=== PATIENT | female | born 1955 | race Caucasian/White ===

== ENCOUNTER → 2020-02-09 09:42 | Outpatient (BNVA) | payer MEDICARE, OTHER, SELFPAY | PROVIDERS: PCP Nurse Practitioner Family; Visit Provider Nurse Practitioner Family | DX: I10 Essential (primary) hypertension (principal); G47.33 Obstructive sleep apnea (adult) (pediatric); F41.9 Anxiety disorder, unspecified; J45.20 Mild intermittent asthma, uncomplicated; E78.5 Hyperlipidemia, unspecified; E03.9 Hypothyroidism, unspecified; Z12.11 Encounter for screening for malignant neoplasm of colon; Z12.31 Encounter for screening mammogram for malignant neoplasm of breast; J30.89 Other allergic rhinitis; D56.5 Hemoglobin E-beta thalassemia; F17.211 Nicotine dependence, cigarettes, in remission | CPT/HCPCS: 80053; 80061; 83036; 84443; 85025 ==

== ENCOUNTER → 2020-04-17 16:46 | Outpatient (BNVA) | payer MEDICARE, OTHER, SELFPAY | PROVIDERS: PCP Nurse Practitioner Family; Visit Provider Nurse Practitioner Family | DX: E03.9 Hypothyroidism, unspecified (principal); E11.9 Type 2 diabetes mellitus without complications | CPT/HCPCS: 80053; 80061; 83036; 84443; 85025 ==

== ENCOUNTER → 2021-01-03 10:48 | Outpatient (BNVA) | payer MEDICARE, OTHER, SELFPAY | PROVIDERS: PCP Nurse Practitioner Family; Visit Provider Nurse Practitioner Family | DX: E87.6 Hypokalemia (principal); E11.9 Type 2 diabetes mellitus without complications; E03.9 Hypothyroidism, unspecified; E78.5 Hyperlipidemia, unspecified; E55.9 Vitamin D deficiency, unspecified; F41.9 Anxiety disorder, unspecified; G47.33 Obstructive sleep apnea (adult) (pediatric); I10 Essential (primary) hypertension; R53.83 Other fatigue; R59.9 Enlarged lymph nodes, unspecified | CPT/HCPCS: 80053; 80061; 82306; 82607; 83036; 84439; 84443; 84481; 85025 ==

== ENCOUNTER 2021-01-15 20:00 | Outpatient (CLI) | payer MEDICARE, OTHER, SELFPAY | END 2021-01-15 20:01 | disposition home or self-care (01) | LOC: SLEEP 01-16 08:59 | PROVIDERS: PCP Nurse Practitioner Family; Visit Provider Nurse Practitioner Family | DX: G47.33 Obstructive sleep apnea (adult) (pediatric) (principal) | CPT/HCPCS: 95810 ==

== ENCOUNTER 2021-01-25 20:00 | Outpatient (CLI) | payer MEDICARE, OTHER, SELFPAY | END 2021-01-25 20:01 | disposition home or self-care (01) | LOC: SLEEP 12-19 08:32 | PROVIDERS: PCP Nurse Practitioner Family; Visit Provider Nurse Practitioner Family | DX: L30.9 Dermatitis, unspecified (principal); E53.8 Deficiency of other specified B group vitamins | CPT/HCPCS: 82607 ==

== ENCOUNTER → 2021-08-08 15:11 | Outpatient (BNVA) | payer MEDICARE, OTHER, SELFPAY | PROVIDERS: PCP Nurse Practitioner Family; Visit Provider Nurse Practitioner Family | DX: E53.8 Deficiency of other specified B group vitamins (principal); R53.83 Other fatigue; E78.5 Hyperlipidemia, unspecified; E11.9 Type 2 diabetes mellitus without complications; F41.9 Anxiety disorder, unspecified; E03.9 Hypothyroidism, unspecified; I10 Essential (primary) hypertension; J32.0 Chronic maxillary sinusitis; Z68.39 Body mass index [BMI] 39.0-39.9, adult | CPT/HCPCS: 80053; 80061; 82306; 82607; 82746; 83036; 84443 ==

== ENCOUNTER → 2022-02-21 08:27 | Outpatient (BNVA) | payer MEDICARE, OTHER, SELFPAY | PROVIDERS: PCP Nurse Practitioner Family; Visit Provider Nurse Practitioner Family | DX: E11.9 Type 2 diabetes mellitus without complications (principal); E87.6 Hypokalemia; E78.5 Hyperlipidemia, unspecified; F41.9 Anxiety disorder, unspecified; E03.9 Hypothyroidism, unspecified; I10 Essential (primary) hypertension; E55.9 Vitamin D deficiency, unspecified; R05.9 Cough, unspecified; J32.0 Chronic maxillary sinusitis; J45.20 Mild intermittent asthma, uncomplicated; R53.83 Other fatigue | CPT/HCPCS: 80053; 80061; 82306; 83036; 84443; 85025 ==

== ENCOUNTER → 2022-02-28 16:17 | Outpatient (BNVA) | payer MEDICARE, OTHER, SELFPAY | PROVIDERS: PCP Nurse Practitioner Family; Visit Provider Nurse Practitioner Family | DX: R05.9 Cough, unspecified (principal); J45.20 Mild intermittent asthma, uncomplicated; E53.8 Deficiency of other specified B group vitamins | CPT/HCPCS: 71046; 82607 ==

== ENCOUNTER → 2022-03-14 10:54 | Outpatient (BNVA) | payer MEDICARE, OTHER, SELFPAY | PROVIDERS: PCP Nurse Practitioner Family; Visit Provider Family Medicine | DX: R05.9 Cough, unspecified (principal); R06.02 Shortness of breath; U07.1 COVID-19 | CPT/HCPCS: 85379 ==

== ENCOUNTER 2022-03-15 20:53 | Emergency (ER) | payer MEDICARE, OTHER, SELFPAY ==
[2022-03-15 20:58] VITALS: BP 156/75; PULSE 97; RESP 16; TEMP 36.8; O2SAT 97; BMI 39.6
--- NOTE | 2022-03-15 21:38 | XRR_ITS ---
PROCEDURE INFORMATION: Exam: XR Chest Exam date and time: 03/15/2022 9:44 PM Age: 67 years old Clinical indication: Cough TECHNIQUE: Imaging protocol: Radiologic exam of the chest. Views: 1 view. COMPARISON: CR XR chest 2V* [id number] 02/28/2022 4:25 PM FINDINGS: Lungs: There are some increased ground-glass opacities in the lower hemithoraces, findings that could represent mild pulmonary edema although a bilateral basilar pneumonitis cannot be excluded. Pleural spaces: Unremarkable. No pleural effusion. No pneumothorax. Heart/Mediastinum: Unremarkable. No cardiomegaly. Bones/joints: Unremarkable. XR/XR chest 1V portable [id number] IMPRESSION: Increased ground-glass opacities in the lower hemithoraces may represent pulmonary edema although a bilateral basilar pneumonitis cannot be excluded.
--- NOTE | 2022-03-15 21:39 | ECG_ITS ---
[facility] Test Date: 2022-03-15 Pat Name: Birgit Akhtar Department: Room: Gender: Female Patient Relations Director: : 1955 Requested By: James Adhikari Order Number: [id number] Sadaf MD: Teodoro Steven M.D. Measurements Intervals [place] Rate: 64 P: 81 IA: 152 QRS: 79 QRSD: 94 T: 83 QT: 402 QTc: 417 Interpretive Statements SINUS RHYTHM LOW QRS VOLTAGE IN PRECORDIAL LEADS [QRS DEFLECTION < 1.0 mV IN CHEST LEADS] Compared to ECG 01/28/2017 18:28:52 Low QRS voltage now present Sinus bradycardia no longer present Electronically Signed On 03-16-2022 20:32:47 CDT by Teodoro Steven M.D. [email or web address]
--- NOTE | 2022-03-15 21:47 | W.ED.CHESTPA ---
Documented by User: James Adhikari MD 03/15/22 22:58 HPI - Chest Pain General: Chief Complaint: Chest Pain Stated Complaint: chest tightness Time Seen by Provider: 03/15/22 20:56 History of Present Illness: Patient comes in with a persistent cough and chest pressure. States she was diagnosed with COVID 6 weeks ago for the second time, and that the cough and chest pressure has persisted. Has been seen by her primary care doctor a couple of times and placed on steroids which have helped, however when she is finished the steroids 2 days ago the cough returned. Denies fever, vomiting, diarrhea. Patient does have a history of hypertension. Associated symptoms: Reports dyspnea; Deny abdominal pain, fever(s), nausea, palpitations or vomiting Review of Systems Const: Denies: fever(s) or body aches Eyes: Denies: change in vision or blurry vision ENMT: Denies: throat pain or odynophagia Card: Reports: chest pain; Denies: palpitations Resp: Reports: dyspnea; Denies: productive cough GI: Denies: abdominal pain, nausea or vomiting : Denies: flank pain or dysuria Musc: Denies: neck pain or back pain Skin/Breast: Denies: rash or pruritus Neuro: Denies: headache(s) or numbness in extremities Psych: Denies: anxiety or change in appetite Endo: Denies: polyuria or excessive sweating PFSH ED PFSH: Medical History Anxiety Asthma History of COVID-19 Hyperlipidemia Hypertension Hypothyroid MARC (obstructive sleep apnea) Surgical History History of back surgery Family History Mother Cancer Brain Father CAD (coronary artery disease) Social History Smoking and tobacco status: former smoker Quit status (tobacco): has quit using tobacco Second hand smoke exposure: No Alcohol intake: never Lives independently: Yes Household members: spouse Marital status: service: No Current occupational status: employed Current occupation: [employer] History of recent travel: No Current gender identity: Female Special peewee needs: No Agree to transfusion: Yes Physical Exam Const: COMMON NORMALS: no acute distress, patient oriented x3, healthy appearing and alert HENMT: COMMON NORMALS: normocephalic and atraumatic HEAD & SCALP: normocephalic and atraumatic Eye: COMMON NORMALS: Equal, round and reactive pupils present and EOMs intact bilaterally PUPIL: Yes Equal, round and reactive pupils present Neck/C-Spine: COMMON NORMALS: full ROM and supple Resp: COMMON NORMALS: normal respiratory effort, No retractions and No use of accessory muscles Cardio: COMMON NORMALS: regular rate and regular rhythm RATE: regular rate RHYTHM: regular rhythm GI: COMMON NORMALS: Normal to inspection, nondistended, normoactive bowel sounds present, Soft to palpation and non-tender PALPATION: Yes Soft to palpation Back/Pelvis: COMMON NORMALS: thoracic and lumbar spine normal to inspection and no thoracic nor lumbar tenderness Extremity: COMMON NORMALS: normal to inspection and full ROM Neuro: COMMON NORMALS: patient oriented x3 SENSORIUM/ORIENTATION: Yes alert Psych: COMMON NORMALS: mental status grossly normal and cooperative Skin: COMMON NORMALS: no rashes or lesions noted and no wounds GENERAL SKIN EXAM: no rashes or lesions noted Course Vital Signs: Vital signs: Vital Signs Temperature 98.2 F 03/16/22 00:35 Pulse Rate 70 03/16/22 00:35 Respiratory Rate 18 03/16/22 00:35 Blood Pressure 128/55 03/16/22 00:35 Pulse Oximetry 94 03/16/22 00:35 Oxygen Delivery Me thod 03/15/22 22:16 MDM - Chest Pain Medical Decision Making Patient comes in with a persistent cough and chest pressure. States she was diagnosed with COVID 6 weeks ago for the second time, and that the cough and chest pressure has persisted. Has been seen by her primary care doctor a couple of times and placed on steroids which have helped, however when she is finished the steroids 2 days ago the cough returned. Denies fever, vomiting, diarrhea. Patient does have a history of hypertension. Given the chest tightness we will check an EKG, labs, x-ray, and reassess. On reassessment I talked to the patient about the test results. We are awaiting the second troponin which if similar to the first troponin or less we will discharge home on a steroid taper. Will sign out to the oncoming physician to follow-up on the second troponin. Lab Data : 03/15/22 21:20 03/15/22 21:20 Radiology Impressions Chest X-Ray 03/15/22 21:38 IMPRESSION: Increased ground-glass opacities in the lower hemithoraces may represent pulmonary edema although a bilateral basilar pneumonitis cannot be excluded. Laboratory Results WBC 8.3 10^3/uL (4.0-10.0) 03/15/22 21:20 RBC 4.22 10^6/uL (4.1-5.3) 03/15/22 21:20 Hgb 12.5 g/dL (11.5-15.3) 03/15/22 21:20 Hct 38.8 % (37.0-47.0) 03/15/22 21:20 MCV 91.9 fl (81-99) 03/15/22 21:20 MCH 29.6 pg (28.0-34.0) 03/15/22 21:20 MCHC 32.2 g/dL (30.0-36.0) 03/15/22 21:20 RDW 13.7 % (12.1-15.1) 03/15/22 21:20 Plt Count 295 10^3/cmm (130-400) 03/15/22 21:20 MPV 10.3 fL (7.4-10.4) 03/15/22 21:20 Neut % (Auto) 55.7 % 03/15/22 21:20 Lymph % (Auto) 32.6 % 03/15/22 21:20 Banks % (Auto) 8.3 % 03/15/22 21:20 Eos % (Auto) 2.6 % 03/15/22 21:20 Baso % (Auto) 0.4 % 03/15/22 21:20 Neut # (Auto) 4.63 10^3/uL (1.8-7.7) 03/15/22 21:20 Lymph # (Auto) 2.7 10^3/uL (0.8-4.8) 03/15/22 21:20 Banks # (Auto) 0.7 10^3/uL (0.2-0.9) 03/15/22 21:20 Eos # (Auto) 0.2 10^3/uL (0.0-0.8) 03/15/22 21:20 Baso # (Auto) 0.0 10^3/uL (0.0-0.1) 03/15/22 21:20 Nucleated RBC % (auto) 0 % 03/15/22 21:20 Nucleated RBCs # 0.0 /100WBC 03/15/22 21:20 Sodium 140 mmol/L (136-145) 03/15/22 21:20 Potassium 3.6 mmol/L (3.5-5.1) 03/15/22 21:20 Chloride 100 mmol/L (98-107) 03/15/22 21:20 Carbon Dioxide 29 mmol/L (22-29) 03/15/22 21:20 Anion Gap 14.6 (5-19) 03/15/22 21:20 BUN 18 mg/dL (8-23) 03/15/22 21:20 Creatinine 0.7 mg/dL (0.5-0.9) 03/15/22 21:20 GFR Calculation 83.2 mL/min (90-130) L 03/15/22 21:20 Glucose 132 mg/dL (65-115) H 03/15/22 21:20 Calculated Osmolality 294 mOsm/kg (285-295) 03/15/22 21:20 Calcium 9.4 mg/dL (8.5-10.5) 03/15/22 21:20 Total Bilirubin 0.4 mg/dL (0.15-1.2) 03/15/22 21:20 AST 20 U/L (0-32) 03/15/22 21:20 ALT 35 U/L (0-33) H 03/15/22 21:20 Alkaline Phosphatase 64 IU/L (35-105) 03/15/22 21:20 Troponin T Baseline 16 ng/L (0-10) H 03/15/22 21:20 Troponin T 120 Minute 15.85 ng/L (0-10) H 03/15/22 23:20 Delta Troponin T -0.15 ABS# (0-10) L 03/15/22 23:20 Total Protein 6.3 g/dL (6.6-8.7) L 03/15/22 21:20 Albumin 3.8 g/dL (3.5-5.2) 03/15/22 21:20 Globulin 2.5 g/dL (1.3-4.6) 03/15/22 21:20 Discharge Plan Discharge Patient Disposition: Home Clinical Impression: Pneumonitis Condition: Stable Prescriptions: No Action aspirin [Adult Aspirin Regimen] 81 mg tablet,delayed release (DR/EC) 81 mg PO DAILY loratadine [Claritin] 10 mg tablet 10 mg PO DAILY fluticasone propionate [Flonase Allergy Relief] 50 mcg/actuation spray,suspension 2 spray intranasal DAILY Rx Instructions: administer into each nostril alprazolam [Xanax] 0.25 mg tablet 0.25 mg PO TID PRN (Reason: anxiety) Qty: 90 0RF budesonide-formoterol [Symbicort] 160-4.5 mcg/actuation HFA aerosol inhaler 2 puff inhalation BID Qty: 10.2 2RF promethazine-DM 6.25-15 mg/5 mL syrup 5 - 10 ml PO Q6H PRN (Reason: cough) Qty: 200 0RF albuterol sulfate [ProAir HFA] 90 mcg/actuation HFA aerosol inhaler 2 puff INHALATION Q6H PRN (Reason: shortness of breath or wheezing) Qty: 18 2RF ipratropium-albuterol 0.5 mg-3 mg(2.5 mg base)/3 mL solution for nebulization 3 ml inhalation QID PRN (Reason: wheezing) Qty: 90 2RF Trelegy Ellipta 100-62.5-25 mcg blister with device 1 inh inhalation DAILY Qty: 60 2RF fluticasone propion-salmeterol [Advair Diskus] 500-50 mcg/dose blister with device 1 inh inhalation BID Qty: 60 2RF hydroxyzine HCl 25 mg tablet 25 mg PO TID PRN (Reason: itching) Qty: 30 0RF (DME) CPAP MACHINE AND SUPPLIES See Rx Instructions .Route .MEDSUPPLY Qty: 1 0RF Rx Instructions: AUTO CPAP 4-20CM potassium chloride 20 mEq tablet extended release See Rx Instructions .ROUTE .COMPLEX Qty: 180 0RF Dose Instruction: TAKE ONE TABLET BY MOUTH TWICE DAILY Rx Instructions: TAKE ONE TABLET BY MOUTH TWICE DAILY hydrochlorothiazide 25 mg tablet See Rx Instructions .ROUTE .COMPLEX Qty: 90 0RF Dose Instruction: TAKE ONE TABLET BY MOUTH DAILY Rx Instructions: TAKE ONE TABLET BY MOUTH DAILY citalopram 20 mg tablet See Rx Instructions .ROUTE .COMPLEX Qty: 90 0RF Dose Instruction: TAKE ONE TABLET BY MOUTH EVERY DAY Rx Instructions: TAKE ONE TABLET BY MOUTH EVERY DAY lisinopril 20 mg tablet See Rx Instructions .ROUTE .COMPLEX Qty: 90 0RF Dose Instruction: TAKE ONE TABLET BY MOUTH EVERY DAY Rx Instructions: TAKE ONE TABLET BY MOUTH EVERY DAY spironolactone 25 mg tablet See Rx Instructions .ROUTE .COMPLEX Qty: 90 0RF Dose Instruction: TAKE ONE TABLET BY MOUTH DAILY Rx Instructions: TAKE ONE TABLET BY MOUTH DAILY levothyroxine 100 mcg tablet See Rx Instructions .ROUTE .COMPLEX Qty: 90 0RF Dose Instruction: TAKE ONE TABLET BY MOUTH EVERY DAY Rx Instructions: TAKE ONE TABLET BY MOUTH EVERY DAY cyanocobalamin (vitamin B-12) 1,000 mcg/mL solution See Rx Instructions .ROUTE .COMPLEX Qty: 1 11RF Dose Instruction: inject 1000mcg(1ml) INTRAMUSCULARLY monthly Rx Instructions: inject 1000mcg(1ml) INTRAMUSCULARLY monthly (DME) nebulizer and compressor Device See Rx Instructions .Route Qty: 1 0RF Rx Instructions: qid prn sob (DME) nebulizer accessories Kit See Rx Instructions .Route Qty: 1 0RF Rx Instructions: As directed (DME) nebulizers Misc See Rx Instructions .Route Qty: 1 0RF Rx Instructions: use 4 times daily as needed for shortness of breath (DME) nebulizer accessories Kit See Rx Instructions .Route Qty: 1 0RF Rx Instructions: 4 times daily as needed for shortness of breath Discharge Orders: Discharge ED (Routine); Ordered 03/15/22 Ordered By: James Adhikari Referrals: Penny Blas FNP [Primary Care Provider] - Sign Out Sign Out Data: Patient Sign Out occurred on 03/15/22 at 23:00. Patient's care was discussed, and care was transferred from to Jesús Solomon MD. Coding Level of Care Code ED Rehabilitation Clerk for Chg Fwd Exam Comprehensive Documented by User: Jesús Solomon MD 03/30/22 16:03 HPI - Chest Pain General: Chief Complaint: Chest Pain Stated Complaint: chest tightness Time Seen by Provider: 03/15/22 20:56 PFSH ED PFSH: Medical History Anxiety Asthma History of COVID-19 Hyperlipidemia Hypertension Hypothyroid MARC (obstructive sleep apnea) Surgical History History of back surgery Family History Mother Cancer Brain Father CAD (coronary artery disease) Social History Smoking and tobacco status: former smoker Quit status (tobacco): has quit using tobacco Second hand smoke exposure: No Alcohol intake: never Lives independently: Yes Household members: spouse Marital status: service: No Current occupational status: employed Current occupation: [employer] History of recent travel: No Current gender identity: Female Special peewee needs: No Agree to transfusion: Yes Course Vital Signs: Vital signs: Vital Signs Temperature 98.2 F 03/16/22 00:35 Pulse Rate 70 03/16/22 00:35 Respiratory Rate 18 03/16/22 00:35 Blood Pressure 128/55 03/16/22 00:35 Pulse Oximetry 94 03/16/22 00:35 Oxygen Delivery Me thod 03/15/22 22:16 MDM - Chest Pain Medical Decision Making Patient comes in with a persistent cough and chest pressure. States she was diagnosed with COVID 6 weeks ago for the second time, and that the cough and chest pressure has persisted. Has been seen by her primary care doctor a couple of times and placed on steroids which have helped, however when she is finished the steroids 2 days ago the cough returned. Denies fever, vomiting, diarrhea. Patient does have a history of hypertension. Given the chest tightness we will check an EKG, labs, x-ray, and reassess. On reassessment I talked to the patient about the test results. We are awaiting the second troponin which if similar to the first troponin or less we will discharge home on a steroid taper. Will sign out to the oncoming physician to follow-up on the second troponin. Patient care handoff received from Dr. Adhikari pending completion of ED evaluation specifically repeat troponin. Laboratory studies reviewed and. Troponin at 2 hours is similar. Satisfactory for continue plan as outlined by Dr. Adhikari. Jesús Solomon MD Emergency Medicine Lab Data : 03/15/22 21:20 03/15/22 21:20 Radiology Impressions Chest X-Ray 03/15/22 21:38 IMPRESSION: Increased ground-glass opacities in the lower hemithoraces may represent pulmonary edema although a bilateral basilar pneumonitis cannot be excluded. Laboratory Results WBC 8.3 10^3/uL (4.0-10.0) 03/15/22 21:20 RBC 4.22 10^6/uL (4.1-5.3) 03/15/22 21:20 Hgb 12.5 g/dL (11.5-15.3) 03/15/22 21:20 Hct 38.8 % (37.0-47.0) 03/15/22 21:20 MCV 91.9 fl (81-99) 03/15/22 21:20 MCH 29.6 pg (28.0-34.0) 03/15/22 21:20 MCHC 32.2 g/dL (30.0-36.0) 03/15/22 21:20 RDW 13.7 % (12.1-15.1) 03/15/22 21:20 Plt Count 295 10^3/cmm (130-400) 03/15/22 21:20 MPV 10.3 fL (7.4-10.4) 03/15/22 21:20 Neut % (Auto) 55.7 % 03/15/22 21:20 Lymph % (Auto) 32.6 % 03/15/22 21:20 Banks % (Auto) 8.3 % 03/15/22 21:20 Eos % (Auto) 2.6 % 03/15/22 21:20 Baso % (Auto) 0.4 % 03/15/22 21:20 Neut # (Auto) 4.63 10^3/uL (1.8-7.7) 03/15/22 21:20 Lymph # (Auto) 2.7 10^3/uL (0.8-4.8) 03/15/22 21:20 Banks # (Auto) 0.7 10^3/uL (0.2-0.9) 03/15/22 21:20 Eos # (Auto) 0.2 10^3/uL (0.0-0.8) 03/15/22 21:20 Baso # (Auto) 0.0 10^3/uL (0.0-0.1) 03/15/22 21:20 Nucleated RBC % (auto) 0 % 03/15/22 21:20 Nucleated RBCs # 0.0 /100WBC 03/15/22 21:20 Sodium 140 mmol/L (136-145) 03/15/22 21:20 Potassium 3.6 mmol/L (3.5-5.1) 03/15/22 21:20 Chloride 100 mmol/L (98-107) 03/15/22 21:20 Carbon Dioxide 29 mmol/L (22-29) 03/15/22 21:20 Anion Gap 14.6 (5-19) 03/15/22 21:20 BUN 18 mg/dL (8-23) 03/15/22 21:20 Creatinine 0.7 mg/dL (0.5-0.9) 03/15/22 21:20 GFR Calculation 83.2 mL/min (90-130) L 03/15/22 21:20 Glucose 132 mg/dL (65-115) H 03/15/22 21:20 Calculated Osmolality 294 mOsm/kg (285-295) 03/15/22 21:20 Calcium 9.4 mg/dL (8.5-10.5) 03/15/22 21:20 Total Bilirubin 0.4 mg/dL (0.15-1.2) 03/15/22 21:20 AST 20 U/L (0-32) 03/15/22 21:20 ALT 35 U/L (0-33) H 03/15/22 21:20 Alkaline Phosphatase 64 IU/L (35-105) 03/15/22 21:20 Troponin T Baseline 16 ng/L (0-10) H 03/15/22 21:20 Troponin T 120 Minute 15.85 ng/L (0-10) H 03/15/22 23:20 Delta Troponin T -0.15 ABS# (0-10) L 03/15/22 23:20 Total Protein 6.3 g/dL (6.6-8.7) L 03/15/22 21:20 Albumin 3.8 g/dL (3.5-5.2) 03/15/22 21:20 Globulin 2.5 g/dL (1.3-4.6) 03/15/22 21:20 Discharge Plan Discharge Patient Disposition: Home Clinical Impression: Pneumonitis Condition: Stable Prescriptions: No Action aspirin [Adult Aspirin Regimen] 81 mg tablet,delayed release (DR/EC) 81 mg PO DAILY loratadine [Claritin] 10 mg tablet 10 mg PO DAILY fluticasone propionate [Flonase Allergy Relief] 50 mcg/actuation spray,suspension 2 spray intranasal DAILY Rx Instructions: administer into each nostril alprazolam [Xanax] 0.25 mg tablet 0.25 mg PO TID PRN (Reason: anxiety) Qty: 90 0RF budesonide-formoterol [Symbicort] 160-4.5 mcg/actuation HFA aerosol inhaler 2 puff inhalation BID Qty: 10.2 2RF promethazine-DM 6.25-15 mg/5 mL syrup 5 - 10 ml PO Q6H PRN (Reason: cough) Qty: 200 0RF albuterol sulfate [ProAir HFA] 90 mcg/actuation HFA aerosol inhaler 2 puff INHALATION Q6H PRN (Reason: shortness of breath or wheezing) Qty: 18 2RF ipratropium-albuterol 0.5 mg-3 mg(2.5 mg base)/3 mL solution for nebulization 3 ml inhalation QID PRN (Reason: wheezing) Qty: 90 2RF Trelegy Ellipta 100-62.5-25 mcg blister with device 1 inh inhalation DAILY Qty: 60 2RF fluticasone propion-salmeterol [Advair Diskus] 500-50 mcg/dose blister with device 1 inh inhalation BID Qty: 60 2RF hydroxyzine HCl 25 mg tablet 25 mg PO TID PRN (Reason: itching) Qty: 30 0RF (DME) CPAP MACHINE AND SUPPLIES See Rx Instructions .Route .MEDSUPPLY Qty: 1 0RF Rx Instructions: AUTO CPAP 4-20CM potassium chloride 20 mEq tablet extended release See Rx Instructions .ROUTE .COMPLEX Qty: 180 0RF Dose Instruction: TAKE ONE TABLET BY MOUTH TWICE DAILY Rx Instructions: TAKE ONE TABLET BY MOUTH TWICE DAILY hydrochlorothiazide 25 mg tablet See Rx Instructions .ROUTE .COMPLEX Qty: 90 0RF Dose Instruction: TAKE ONE TABLET BY MOUTH DAILY Rx Instructions: TAKE ONE TABLET BY MOUTH DAILY citalopram 20 mg tablet See Rx Instructions .ROUTE .COMPLEX Qty: 90 0RF Dose Instruction: TAKE ONE TABLET BY MOUTH EVERY DAY Rx Instructions: TAKE ONE TABLET BY MOUTH EVERY DAY lisinopril 20 mg tablet See Rx Instructions .ROUTE .COMPLEX Qty: 90 0RF Dose Instruction: TAKE ONE TABLET BY MOUTH EVERY DAY Rx Instructions: TAKE ONE TABLET BY MOUTH EVERY DAY spironolactone 25 mg tablet See Rx Instructions .ROUTE .COMPLEX Qty: 90 0RF Dose Instruction: TAKE ONE TABLET BY MOUTH DAILY Rx Instructions: TAKE ONE TABLET BY MOUTH DAILY levothyroxine 100 mcg tablet See Rx Instructions .ROUTE .COMPLEX Qty: 90 0RF Dose Instruction: TAKE ONE TABLET BY MOUTH EVERY DAY Rx Instructions: TAKE ONE TABLET BY MOUTH EVERY DAY cyanocobalamin (vitamin B-12) 1,000 mcg/mL solution See Rx Instructions .ROUTE .COMPLEX Qty: 1 11RF Dose Instruction: inject 1000mcg(1ml) INTRAMUSCULARLY monthly Rx Instructions: inject 1000mcg(1ml) INTRAMUSCULARLY monthly (DME) nebulizer and compressor Device See Rx Instructions .Route Qty: 1 0RF Rx Instructions: qid prn sob (DME) nebulizer accessories Kit See Rx Instructions .Route Qty: 1 0RF Rx Instructions: As directed (DME) nebulizers [facility] [place] [facility] See Rx Instructions .Route Qty: 1 0RF Rx Instructions: use 4 times daily as needed for shortness of breath (DME) nebulizer accessories Kit See Rx Instructions .Route Qty: 1 0RF Rx Instructions: 4 times daily as needed for shortness of breath Discharge Orders: Discharge ED (Routine); Ordered 03/15/22 Ordered By: James Adhikari Referrals: Penny Blas, SCHEDULE CHECKER [Primary Care Provider] - Sign Out Sign Out Data: Patient Sign Out occurred on 03/15/22 at 23:00. Patient's care was discussed, and care was transferred from to Jesús Solomon MD. Coding Level of Care Code ED Rehabilitation Clerk for Chg Fwd Exam Comprehensive
[2022-03-15 21:50] LABS: Basophils % 0.4 %; Eosinophils # 0.2 10^3/uL (0.0-0.8); Eosinophils % 2.6 %; Hematocrit 38.8 % (37.0-47.0); Hemoglobin 12.5 g/dL (11.5-15.3); Lymphocytes # 2.7 10^3/uL (0.8-4.8); Lymphocytes % 32.6 %; Mean Corpuscular HGB Conc 32.2 g/dL (30.0-36.0); Mean Corpuscular Hemoglobin 29.6 pg (28.0-34.0); Mean Corpuscular Volume 91.9 fl (81-99); Mean Platelet Volume 10.3 fL (7.4-10.4); Monocytes # 0.7 10^3/uL (0.2-0.9); Monocytes % 8.3 %; Neutrophils # 4.63 10^3/uL (1.8-7.7); Neutrophils % 55.7 %; Nucleated Red Blood Cells % 0 %; Platelet Count 295 10^3/cmm (130-400); Red Blood Count 4.22 10^6/uL (4.1-5.3); Red Cell Distribution Width 13.7 % (12.1-15.1); White Blood Count 8.3 10^3/uL (4.0-10.0)
[2022-03-15 22:06] LABS: Alanine Aminotransferase 35 U/L (0-33); Albumin Level 3.8 g/dL (3.5-5.2); Alkaline Phosphatase 64 IU/L (35-105); Anion Gap 14.6 (5-19); Aspartate Amino Transferase 20 U/L (0-32); Blood Urea Nitrogen 18 mg/dL (8-23); Calcium 9.4 mg/dL (8.5-10.5); Carbon Dioxide 29 mmol/L (22-29); Chloride 100 mmol/L (98-107); Globulin 2.5 g/dL (1.3-4.6); Glomerular Filtration Rate 83.2 mL/min (90-130); Glucose 132 mg/dL (65-115); Osmolality Calculated 294 mOsm/kg (285-295); Potassium 3.6 mmol/L (3.5-5.1); Sodium 140 mmol/L (136-145); Total Bilirubin 0.4 mg/dL (0.15-1.2); Total Protein 6.3 g/dL (6.6-8.7)
[2022-03-15 22:08] LABS: Troponin(5th) Baseline 16 ng/L (0-10)
[2022-03-15 22:16] VITALS: BP 161/65; PULSE 61; RESP 16; O2SAT 95
[2022-03-16 00:02] LABS: Troponin 5 2HR 15.85 ng/L (0-10)
[2022-03-16 00:10] LABS: Troponin 5 2HR Delta -0.15 ABS# (0-10)
[2022-03-16 00:35] VITALS: BP 128/55; PULSE 70; RESP 18; TEMP 36.8; O2SAT 94
== END 2022-03-16 00:37 | disposition home or self-care (01) ==
PROVIDERS: Emergency Medicine; Emergency Provider Emergency Medicine; PCP Nurse Practitioner Family
DX: J18.9 Pneumonia, unspecified organism (principal); Z79.82 Long term (current) use of aspirin; E78.5 Hyperlipidemia, unspecified; I10 Essential (primary) hypertension; Z87.891 Personal history of nicotine dependence
CPT/HCPCS: 71045; 80053; 84484; 85025; 93005; 99285

== ENCOUNTER → 2022-03-26 16:14 | Outpatient (BNVA) | payer MEDICARE, OTHER, SELFPAY | PROVIDERS: PCP Nurse Practitioner Family; Visit Provider Nurse Practitioner Family | DX: R05.9 Cough, unspecified (principal) | CPT/HCPCS: 71046 ==

== ENCOUNTER → 2022-07-02 16:25 | Outpatient (BNVA) | payer MEDICARE, OTHER, SELFPAY | PROVIDERS: PCP Nurse Practitioner Family; Visit Provider Nurse Practitioner Family | DX: J02.9 Acute pharyngitis, unspecified (principal); Z20.822 Contact with and (suspected) exposure to COVID-19 | CPT/HCPCS: 87400; 87426 ==

== ENCOUNTER → 2022-11-22 11:23 | Outpatient (BNVA) | payer MEDICARE, OTHER, SELFPAY | PROVIDERS: PCP Nurse Practitioner Family; Visit Provider Nurse Practitioner Family | DX: E11.9 Type 2 diabetes mellitus without complications (principal); E78.5 Hyperlipidemia, unspecified; E03.9 Hypothyroidism, unspecified | CPT/HCPCS: 80053; 80061; 83036; 84443; 85025 ==

== ENCOUNTER → 2023-03-26 16:27 | Outpatient (BNVA) | payer MEDICARE, OTHER, SELFPAY | PROVIDERS: PCP Nurse Practitioner Family; Visit Provider Nurse Practitioner Family | DX: J32.0 Chronic maxillary sinusitis (principal); E11.9 Type 2 diabetes mellitus without complications; E53.8 Deficiency of other specified B group vitamins; J45.901 Unspecified asthma with (acute) exacerbation; I10 Essential (primary) hypertension; E78.5 Hyperlipidemia, unspecified | CPT/HCPCS: 80053; 80061; 82607; 83036 ==

== ENCOUNTER 2023-07-07 13:40 | Emergency (ER) | payer MEDICARE, OTHER, SELFPAY ==
[2023-07-07 13:43] VITALS: BP 186/84; PULSE 87; RESP 18; TEMP 36.7; O2SAT 94; BMI 38.9
--- NOTE | 2023-07-07 13:46 | XRR_ITS ---
PROCEDURE INFORMATION: Exam: XR Chest Exam date and time: 07/07/2023 1:54 PM Age: 68 years old Clinical indication: Pain; Shortness of breath; Chest pressure; Additional info: SOB TECHNIQUE: Imaging protocol: Radiologic exam of the chest. Views: 1 view. COMPARISON: CR XR chest 2V* [id number] 03/26/2022 4:17 PM FINDINGS: Lungs: Unremarkable. No consolidation. Pleural spaces: Unremarkable. No pleural effusion. No pneumothorax. Heart/Mediastinum: Unremarkable. No cardiomegaly. Bones/joints: Unremarkable. XR/XR chest 1V portable [id number] IMPRESSION: No acute findings.
--- NOTE | 2023-07-07 13:46 | ECG_ITS ---
[facility] Test Date: 2023-07-07 Pat Name: Birgit Akhtar Department: Room: Gender: Female Laser Machine Operator: : 1955 Requested By: Loida Holland Order Number: [id number] Sadaf MD: Danita Clifford M.D. Measurements Intervals [place] Rate: 79 P: 73 AR: 159 QRS: 67 QRSD: 94 T: 72 QT: 389 QTc: 447 Interpretive Statements SINUS RHYTHM Compared to ECG 03/15/2022 21:23:41 No significant changes Electronically Signed On 07-07-2023 13:50:51 BROKER IN CHARGE by Danita Clifford M.D. [id number]
[2023-07-07 13:51] VITALS: PULSE 81; RESP 17; O2SAT 94; O2SAT 97
--- NOTE | 2023-07-07 13:51 | W.ED.URI ---
HPI - URI/Sore Throat General: Chief Complaint: Upper Respiratory Infection Stated Complaint: sob Time Seen by Provider: 07/07/23 13:41 Source: patient and EMS Mode of arrival: EMS Limitations: no limitations History of Present Illness: 68-year-old female has a history of bronchitis and asthma in the past. She states she had some slight shortness of breath over the last 2 days she states that today while she is at work she started having a coughing fit she did an albuterol treatment there with minimal improvement and called EMS she had Solu-Medrol and another DuoNeb in route states she does feel much improved she is in no distress here pulse ox 97% on room air she denies any fever denies any pain. Associated symptoms: Deny abdominal pain, chills, chest pain, diarrhea, fever(s), headache(s), nausea or vomiting Review of Systems Const: Denies: fever(s), chills, body aches or change in appetite Eyes: Denies: blurry vision or eye discomfort ENMT: Denies: throat pain or dental pain Card: Denies: chest pain Resp: Reports: dyspnea and non-productive cough GI: Denies: abdominal pain, nausea, vomiting or diarrhea Musc: Denies: neck pain or back pain Skin/Breast: Denies: rash Neuro: Denies: headache(s) PFSH ED PFSH: Medical History History of COVID-19 Hyperlipidemia Asthma Anxiety Hypothyroid MARC (obstructive sleep apnea) Hypertension Surgical History History of back surgery Family History Mother Cancer Brain Father CAD (coronary artery disease) Social History Smoking and tobacco/nicotine status: former use of tobacco/nicotine Quit status (tobacco/nicotine): has quit using Second hand smoke exposure: No Alcohol intake: never Substance/Drug Use: never Lives independently: Yes Household members: spouse Marital status: service: No Current occupational status: employed Current occupation: [employer] Current gender identity: Female Special peewee needs: No Agree to transfusion: Yes Physical Exam Const: COMMON NORMALS: no acute distress, patient oriented x3 and healthy appearing HENMT: COMMON NORMALS: normocephalic and atraumatic HEAD & SCALP: normocephalic and atraumatic Eye: COMMON NORMALS: Equal, round and reactive pupils present and EOMs intact bilaterally PUPIL: Yes Equal, round and reactive pupils present Neck/C-Spine: COMMON NORMALS: full ROM and supple Chest: COMMONS NORMALS: normal inspection of the chest and normal palpation of entire chest wall Resp: COMMON NORMALS: normal respiratory effort, No retractions, No use of accessory muscles and clear to auscultation bilaterally AUSCULTATION: clear to auscultation bilaterally Cardio: COMMON NORMALS: regular rate, regular rhythm and No murmurs present (Cardio) RATE: regular rate RHYTHM: regular rhythm GI: COMMON NORMALS: Normal to inspection, nondistended, normoactive bowel sounds present, Soft to palpation, non-tender and no masses PALPATION: Yes Soft to palpation Extremity: COMMON NORMALS: normal to inspection and full ROM Neuro: COMMON NORMALS: patient oriented x3, moves all extremities and no focal motor deficits Psych: COMMON NORMALS: mental status grossly normal, Normal thought process present and cooperative THOUGHT PROCESS: Normal thought process present Skin: COMMON NORMALS: no rashes or lesions noted and no wounds GENERAL SKIN EXAM: no rashes or lesions noted Course Vital Signs: Vital signs: Vital Signs Temperature 98.1 F 07/07/23 13:43 Pulse Rate 83 07/07/23 15:07 Respiratory Rate 16 07/07/23 15:07 Blood Pressure 153/74 07/07/23 15:07 Pulse Oximetry 95 07/07/23 15:07 Oxygen Delivery Me thod Room Air 07/07/23 15:06 MDM - URI/Sore Throat Medical Decision Making Patient presents here with bronchitis x-ray here is normal blood works normal no signs of pneumonia she is on cefdinir currently she is to continue we will start her on a 5-day course of steroids she is to follow-up per PCP and return if worsening. Medical Records I reviewed the patient's medical records. Lab Data I reviewed the patient's lab results. 07/07/23 14:07 07/07/23 14:07 Radiology Impressions Chest X-Ray 07/07/23 13:46 IMPRESSION: No acute findings. Laboratory Results WBC 11.37 10^3/uL (3.29-11.43) 07/07/23 14:07 RBC 4.72 10^6/uL (3.85-5.65) 07/07/23 14:07 Hgb 13.90 g/dL (11.27-16.99) 07/07/23 14:07 Hct 42.0 % (36-47) 07/07/23 14:07 MCV 89.0 fl (85-98) 07/07/23 14:07 MCH 29.4 pg (27-33) 07/07/23 14:07 MCHC 33.1 g/dL (30-55) 07/07/23 14:07 RDW 12.8 % (12.1-15.1) 07/07/23 14:07 Plt Count 336 10^3/cmm (157-399) 07/07/23 14:07 MPV 9.7 fL (7.4-10.4) 07/07/23 14:07 Neut % (Auto) 62.5 % 07/07/23 14:07 Lymph % (Auto) 28.8 % 07/07/23 14:07 Whitley % (Auto) 5.8 % 07/07/23 14:07 Eos % (Auto) 2.1 % 07/07/23 14:07 Baso % (Auto) 0.4 % 07/07/23 14:07 Neut # (Auto) 7.11 10^3/uL (1.8-7.7) 07/07/23 14:07 Lymph # (Auto) 3.3 10^3/uL (0.8-4.8) 07/07/23 14:07 Whitley # (Auto) 0.7 10^3/uL (0.2-0.9) 07/07/23 14:07 Eos # (Auto) 0.2 10^3/uL (0.0-0.8) 07/07/23 14:07 Baso # (Auto) 0.0 10^3/uL (0.0-0.1) 07/07/23 14:07 Nucleated RBC % (auto) 0 % 07/07/23 14:07 Nucleated RBCs # 0.0 /100WBC 07/07/23 14:07 Sodium 134 mmol/L (136-145) L 07/07/23 14:07 Potassium 3.7 mmol/L (3.5-5.1) 07/07/23 14:07 Chloride 99 mmol/L (98-107) 07/07/23 14:07 Carbon Dioxide 25 mmol/L (22-29) 07/07/23 14:07 Anion Gap 13.7 (5-19) 07/07/23 14:07 BUN 14 mg/dL (8-23) 07/07/23 14:07 Creatinine 0.8 mg/dL (0.5-0.9) 07/07/23 14:07 GFR Calculation 71.1 mL/min (90-130) L 07/07/23 14:07 Glucose 134 mg/dL (65-115) H 07/07/23 14:07 Calculated Osmolality 280 mOsm/kg (285-295) L 07/07/23 14:07 Calcium 9.6 mg/dL (8.5-10.5) 07/07/23 14:07 Total Bilirubin 0.6 mg/dL (0.15-1.2) 07/07/23 14:07 AST 18 U/L (0-32) 07/07/23 14:07 ALT 26 U/L (0-33) 07/07/23 14:07 Alkaline Phosphatase 70 U/L (35-105) 07/07/23 14:07 NT-Pro-B Natriuret Pep 247 pg/mL (0-125) H 07/07/23 14:07 Total Protein 7.4 g/dL (6.6-8.7) 07/07/23 14:07 Albumin 4.2 g/dL (3.5-5.2) 07/07/23 14:07 Globulin 3.2 g/dL (1.3-4.6) 07/07/23 14:07 SARS-CoV-2 Ag (Rapid) negative (Negative) 07/07/23 14:02 All radiology interpretation(s) finalized by discharge EKG Data EKG 1: I personally reviewed and interpreted this EKG as follows: EKG interpretation date: 07/07/23 EKG interpretation time: 13:46 Interpretation: nsr hr [address] or t wave abnormalities qrs 94 qtc 424 Discharge Plan Discharge Patient Disposition: Home Clinical Impression: Bronchitis Prescriptions: New prednisone 50 mg tablet 50 mg PO DAILY Qty: 5 0RF No Action aspirin [Adult Aspirin Regimen] 81 mg tablet,delayed release (DR/EC) 81 mg PO QAM loratadine [Claritin] 10 mg tablet 10 mg PO QAM fluticasone propionate [Flonase Allergy Relief] 50 mcg/actuation spray,suspension 2 spray intranasal DAILY Rx Instructions: administer into each nostril ipratropium-albuterol 0.5 mg-3 mg(2.5 mg base)/3 mL solution for nebulization 3 ml inhalation QID PRN (Reason: wheezing) Qty: 90 2RF cyclobenzaprine 10 mg tablet 10 mg PO TID PRN (Reason: muscle spasm) Qty: 90 0RF alprazolam [Xanax] 0.25 mg tablet 0.25 mg PO TID PRN (Reason: anxiety) Qty: 90 0RF albuterol sulfate [ProAir HFA] 90 mcg/actuation HFA aerosol inhaler 2 puff INHALATION Q6H PRN (Reason: shortness of breath or wheezing) Qty: 18 2RF Ed A-Hist DM 4-10-15 mg/5 mL liquid 5 ml PO Q6H PRN (Reason: cold symptoms) Qty: 160 0RF cefdinir 300 mg capsule 300 mg PO BID Qty: 14 0RF Rx Instructions: [place] 07/03/23 7d[place] [place] AND SUPPLIES See Rx Instructions .Route .MEDSUPPLY Qty: 1 0RF Rx Instructions: AUTO CPAP 4-20CM [place] [place] nebulizer and compressor Device See Rx Instructions .Route Qty: 1 0RF Rx Instructions: qid prn sob (DME) nebulizer accessories Kit See Rx Instructions .Route Qty: 1 0RF Rx Instructions: [place] [place] [facility] [place] See Rx Instructions .Route Qty: 1 0RF Rx Instructions: use 4 times daily as needed for shortness of breath [place] [place] nebulizer accessories Kit See Rx Instructions .Route Qty: 1 0RF Rx Instructions: 4 times daily as needed for shortness of breath multivitamin Tablet 1 tab PO DAILY Fish Oil Concentrate 1,000 mg Capsule 1,000 mg PO BID Glucosamine 500 mg Tablet 500 mg PO BID Perla Allergy 180 mg Tablet 180 mg PO BEDTIME Mucinex Sinus-Max Cng-Pain(DM) 5-10-325 mg Capsule 2 cap PO BID PRN (Reason: Congestion) Symbicort 160-4.5 mcg/actuation HFA aerosol inhaler 2 puff INHALATION BID magnesium oxide 400 mg magnesium Tablet 400 mg PO BEDTIME spironolactone 25 mg tablet 25 mg PO QAM levothyroxine 100 mcg tablet 100 mcg PO QAM citalopram 20 mg tablet 20 mg PO QAM cyanocobalamin (vitamin B-12) 1,000 mcg/mL solution 1,000 mcg IM Q30D hydrochlorothiazide 25 mg tablet 25 mg PO QAM potassium chloride 20 mEq tablet extended release 20 meq PO QAM Discharge Orders: Discharge ED (Routine); Ordered 07/07/23 Ordered By: Loida Holland Referrals: Penny Blas FNP [Primary Care Provider] - 1-3 days Discharge Diet: Advance as tolerated Discharge Activity: Resume usual activity Patient Instructions: Acute Bronchitis (ED) Coding Level of Care Code ED Special Delivery Carrier for Kavitha Panchal
[2023-07-07 14:16] LABS: Basophils % 0.4 %; Eosinophils # 0.2 10^3/uL (0.0-0.8); Eosinophils % 2.1 %; Lymphocytes # 3.3 10^3/uL (0.8-4.8); Lymphocytes % 28.8 %; Mean Corpuscular HGB Conc 33.1 g/dL (30-55); Mean Corpuscular Hemoglobin 29.4 pg (27-33); Mean Platelet Volume 9.7 fL (7.4-10.4); Monocytes # 0.7 10^3/uL (0.2-0.9); Monocytes % 5.8 %; Neutrophils # 7.11 10^3/uL (1.8-7.7); Neutrophils % 62.5 %; Nucleated Red Blood Cells % 0 %; Platelet Count 336 10^3/cmm (157-399); Red Blood Count 4.72 10^6/uL (3.85-5.65); Red Cell Distribution Width 12.8 % (12.1-15.1); White Blood Count 11.37 10^3/uL (3.29-11.43)
[2023-07-07 14:32] LABS: SARS Covid-2 Antigen negative (Negative)
--- NOTE | 2023-07-07 14:38 | PC.PHAR ---
pt states she takes care of her own medications-pt states she is still taking cefdinir 300mg bid ext shows last filled 07/03/23 7d/s-pt states she is unsure the date last month when she got her vitamin b12 injection but states she is due for it soon-pt states she is taking kcl 20meq qam ext shows last filled 06/16/23 30d/s 20meq bid-pt states she was on advair diskus 500mcg-50 1p bid ext shows last filled 12/16/22 30d/s pt states dced and changed to symbicort 160-4.5 2 p bid ext shows last filled 03/26/23 then states it was changed to [id number] 1p daily ext shows last filled 04/21/23 30d/s pt states she is now only using the symbicort 160-4.5 2p bid and albuterol inhaler prn-notes are made in the pharmacy comments
[2023-07-07 14:48] LABS: Alanine Aminotransferase 26 U/L (0-33); Albumin Level 4.2 g/dL (3.5-5.2); Alkaline Phosphatase 70 U/L (35-105); Anion Gap 13.7 (5-19); Aspartate Amino Transferase 18 U/L (0-32); Blood Urea Nitrogen 14 mg/dL (8-23); Calcium 9.6 mg/dL (8.5-10.5); Carbon Dioxide 25 mmol/L (22-29); Chloride 99 mmol/L (98-107); Globulin 3.2 g/dL (1.3-4.6); Glomerular Filtration Rate 71.1 mL/min (90-130); Glucose 134 mg/dL (65-115); NT Pro B Type Natriuretic Pept 247 pg/mL (0-125); Osmolality Calculated 280 mOsm/kg (285-295); Potassium 3.7 mmol/L (3.5-5.1); Sodium 134 mmol/L (136-145); Total Bilirubin 0.6 mg/dL (0.15-1.2); Total Protein 7.4 g/dL (6.6-8.7)
[2023-07-07 15:06] VITALS: BP 153/74; PULSE 83; RESP 16; O2SAT 94
[2023-07-07 15:07] VITALS: BP 153/74; PULSE 83; RESP 16; O2SAT 95
== END 2023-07-07 15:19 | disposition home or self-care (01) ==
PROVIDERS: Emergency Provider Emergency Medicine; PCP Nurse Practitioner Family
DX: J40 Bronchitis, not specified as acute or chronic (principal); Z79.82 Long term (current) use of aspirin; Z11.52 Encounter for screening for COVID-19; Z87.891 Personal history of nicotine dependence; E78.5 Hyperlipidemia, unspecified; I10 Essential (primary) hypertension
CPT/HCPCS: 36415; 71045; 80053; 83880; 85025; 87426; 93005; 99285

== ENCOUNTER → 2023-07-09 11:03 | Outpatient (BNVA) | payer MEDICARE, OTHER, SELFPAY | PROVIDERS: PCP Nurse Practitioner Family; Visit Provider Nurse Practitioner Family | DX: J40 Bronchitis, not specified as acute or chronic (principal) | CPT/HCPCS: 71046; 87486; 87581; 87633 ==

== ENCOUNTER → 2023-10-22 13:12 | Outpatient (BNVA) | payer MEDICARE, OTHER, SELFPAY | PROVIDERS: PCP Nurse Practitioner Family; Visit Provider Nurse Practitioner Family | DX: R07.9 Chest pain, unspecified (principal) | CPT/HCPCS: 93005 ==

== ENCOUNTER → 2023-10-22 14:15 | Outpatient (BNVA) | payer MEDICARE, OTHER, SELFPAY | PROVIDERS: PCP Nurse Practitioner Family; Visit Provider Nurse Practitioner Family | DX: E11.9 Type 2 diabetes mellitus without complications (principal) | CPT/HCPCS: 80053; 80061; 83036; 84443; 85025 ==

== ENCOUNTER → 2024-03-30 08:41 | Outpatient (BNVA) | payer MEDICARE, OTHER, SELFPAY | PROVIDERS: PCP Nurse Practitioner Family; Visit Provider Nurse Practitioner Family | DX: E11.9 Type 2 diabetes mellitus without complications (principal); Z79.899 Other long term (current) drug therapy | CPT/HCPCS: 80053; 80061; 82043; 82306; 82607; 83036; 84443; 85025 ==

== ENCOUNTER → 2024-09-29 11:30 | Outpatient (BNVA) | payer MEDICARE, OTHER, SELFPAY | PROVIDERS: Family Provider Nurse Practitioner Family; PCP Nurse Practitioner Family; Visit Provider Nurse Practitioner Family | DX: E11.9 Type 2 diabetes mellitus without complications (principal); E55.9 Vitamin D deficiency, unspecified; F41.9 Anxiety disorder, unspecified; I10 Essential (primary) hypertension; E03.9 Hypothyroidism, unspecified; K21.9 Gastro-esophageal reflux disease without esophagitis; J45.20 Mild intermittent asthma, uncomplicated; E53.8 Deficiency of other specified B group vitamins | CPT/HCPCS: 80053; 80061; 82306; 82607; 83036; 84443; 85025 ==

== ENCOUNTER → 2025-02-09 08:29 | Outpatient (BNVA) | payer MEDICARE, OTHER, SELFPAY | PROVIDERS: Family Provider Nurse Practitioner Family; PCP Nurse Practitioner Family; Visit Provider Nurse Practitioner Family | DX: R05.9 Cough, unspecified (principal); E55.9 Vitamin D deficiency, unspecified; E11.9 Type 2 diabetes mellitus without complications | CPT/HCPCS: 71046; 80053; 80061; 82306; 82607; 83036; 84443; 85025 ==